=== PATIENT | female | born 1995 | race Caucasian/White ===

== ENCOUNTER 2024-04-17 09:01 | Outpatient (CLI) | payer OTHER ==
[2024-04-17 12:24] LABS: BHCG - Serum Negative (NEGATIVE); Pregs Control Background? CLEAR/WHITE (CLR/WHITE); Pregs Control Bar Appear? YES (CONTROL BAR)
== END 2024-04-17 09:02 | disposition home or self-care (01) ==
LOC: CSHLAB 09:01
PROVIDERS: ATTEND Otolaryngology Otolaryngic Allergy
DX: Z01.812 Encounter for preprocedural laboratory examination (principal); J34.2 Deviated nasal septum; J34.3 Hypertrophy of nasal turbinates
CPT/HCPCS: 84703; 85014